=== PATIENT | male | born 1950 | race Caucasian/White ===

== ENCOUNTER 2017-01-03 14:43 | Observation (INO) | payer MEDICARE, OTHER ==
--- NOTE | ~2017-01-03 | HP ---
History And Physical [address] [place]. [address] NAME: ADRIANNE MDARID : 48 STATUS : ADM Emely PAT#: [id number] AGE: 66 ADM/REG DATE : 01/03/17 MR#: [id number] REPORT SERV DATE: 01/04/17 DICTATED BY: DATE: REPORT STATUS : Draft TRANSCRIBED BY: MODL DATE: 01/04/17 DATE OF ADMISSION: 01/03/2017 FLAT EXAMINER: He reports he sees a suit attendant at the [facility], he is unsure of his name. CHIEF COMPLAINT: Chest pain. HISTORY OF PRESENT ILLNESS: This is a 66-year-old white male, who presented to the emergency room with chest pain that started yesterday around 11 a.m. 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 He reports the chest pain was a 7 to 8/10 that did not radiate anywhere. He reports that the chest pain was relieved after he received a nitroglycerin x1 in the ambulance, and he denies any recurrence of the symptoms listed above ever since he received the nitro in the ambulance. Currently, he denies any chest pain or pressure, shortness of breath, nausea, vomiting, or abdominal pain. The patient denies any personal history of myocardial infarction, stroke, DVT, or pulmonary embolus. The patient denies any recent fever or chills. No palpitations. No syncopal episodes. Denies PND or orthopnea. PAST MEDICAL HISTORY: Hypertension, hyperlipidemia, GERD, and PTSD. PAST SURGICAL HISTORY: Lower lumbar fusion. He reports he has had six back surgeries. Right knee surgery. SOCIAL HISTORY: He is retired from the [employer]. He is with two children. He smokes about two cigars daily, and has been doing that for the last two to three years ago. He denies any alcohol use, and he denies any illicit drug use. FAMILY HISTORY: He reports that his mother had an [place] in her 70s, and he reports that his father had atherosclerosis. REVIEW OF SYSTEMS: A 14-point review of systems was performed, significant for HPI. No other contributory diagnosis identified. ALLERGIES: NO KNOWN ALLERGIES. HOME MEDICATIONS: 1. Lipitor 10 mg p.o. at bedtime. 2. Wellbutrin 100 p.o. twice a day. 3. Lopressor 12.5 p.o. twice a day. 4. Prilosec 20 p.o. before breakfast. 5. Aspirin enteric-coated 81 mg p.o. daily. 6. Multivitamin 1 tablet p.o. daily. 7. Beta-angeline. History And Physical [address] [address] NAME: ADRIANNE MADRID : 48 STATUS : ADM Emely PAT#: [id number] AGE: 66 ADM/REG DATE : 01/03/17 MR#: [id number] REPORT SERV DATE: 01/04/17 DICTATED BY: DATE: REPORT STATUS : Draft TRANSCRIBED BY: DEJON DATE: 01/04/17 PHYSICAL EXAMINATION: VITAL SIGNS: Blood pressure 125/75, heart rate 56, temperature 97.7, respirations 18, O2 saturation 97%. BMI of 28.1. GENERAL: Cooperative, in no apparent distress. HEENT: Head normocephalic, anicteric. Normal EOM. PERRLA. No xanthelasma. Nares patent. Moist mucous membranes. NECK: Trachea midline. No thyromegaly, JVD or bruits. RESPIRATORY: Clear to auscultation bilaterally anterior and posterior. Respirations even and unlabored. No wheezes, rhonchi or crackles. CARDIOVASCULAR: Regular rate and rhythm. No murmur, rub or gallop appreciated. No chest wall tenderness to palpation. ABDOMEN: Soft, nontender, nondistended, normal bowel sounds auscultated throughout. No masses or organomegaly. EXTREMITIES: No peripheral edema. DP/PT and radial pulses palpable bilaterally. No clubbing or cyanosis. SKIN: Warm, dry and intact. Normal turgor. No pallor or cyanosis. NEURO/PSYCH: Alert, oriented x3 with no acute distress. Affect appropriate to current situation. IMAGING AND DIAGNOSTIC STUDIES: CTA of the aorta done on 01/03/2017 shows normal CTA of the aorta, no acute abnormality. Chest x-ray; no radiographic evidence of acute process noted. The lungs and pleural spaces are clear. EKG shows sinus rhythm, 64. departmental secretary shows sinus rhythm at 68, no ectopy, pauses, or any arrhythmias noted. ASSESSMENT AND PLAN: 1. Typical chest pain. Troponins x2 have been negative. The patient currently has been chest pain free. Cardiac risk factors are hypertension, hyperlipidemia, family history, and tobacco use. Due to the cardiac risk factors, we have been observing the patient in the CPOU to rule out myocardial infarction with serial enzymes and serial EKGs. We will keep the patient n.p.o. today and plan an MPI. If the stress test shows low risk or no ischemia, RN may discharge the patient home with a followup with the patient's PCP in one week and to follow up with the patient's suit attendant who he reports he does not know the name of, and he reports that he has seen a suit attendant due to an aortic aneurysm. Please refer to the CTA of the aorta done here. Therefore, we will defer any type of further testing regarding questionable history of aneurysm to the patient's PCP and the [facility] suit attendant. If anything on the stress test is suggestive of ischemia, Cardiology referral will be initiated at that time. 2. Hypertension, appears to be stable. We will continue to monitor and continue the beta- angeline after the stress test. 3. Hyperlipidemia. The patient is on a statin. 4. Post-traumatic stress disorder. The patient is on Wellbutrin. 5. Gastroesophageal reflux disease. The patient is on Prilosec. History And Physical [address] [address] NAME: ADRIANNE MADRID : 48 STATUS : ADM Emely PAT#: [id number] AGE: 66 ADM/REG DATE : 01/03/17 MR#: [id number] REPORT SERV DATE: 01/04/17 DICTATED BY: DATE: REPORT STATUS : Draft TRANSCRIBED BY: MODL DATE: 01/04/17 6. Tobacco use. Smoking cessation was given. EKS/MODL Ramon Heredia APN / [id number] CC: Tereza Palmer, MSN, [employer] JUICE ROSENBAUM
--- NOTE | ~2017-01-03 | HP ---
History And Physical [address] [place]. [address] NAME: ADRIANNE MADRID : 48 STATUS : DIS Emely PAT#: [id number] AGE: 66 ADM/REG DATE : 01/03/17 MR#: [id number] REPORT SERV DATE: 01/04/17 DICTATED BY: DATE: REPORT STATUS : Draft TRANSCRIBED BY: MODL DATE: 01/04/17 DATE OF ADMISSION: 01/03/2017 He also reports to see a sustainability manager at the [facility], whom he does not know the name of. HISTORY OF PRESENT ILLNESS: This is a 66-year-old white male, who presented to the emergency room with chest pain that started yesterday around 11 a.m. The patient reports during his chest pain event, he also developed some chest pressure, shortness of breath, nausea, profuse sweating, and arm shakiness while he was plowing his yard. He denies the pain radiating anywhere. He reports that the chest pain that was a 7/10 to 8/10 was relieved with nitro x1 in the ambulance on his way to the emergency room. He denies any reoccurrence of the chest pain or pressure or any of the other symptoms since his pain was relieved in the ambulance. Currently, he denies any shortness of breath, chest pain, nausea, vomiting, abdominal pain, or any recent illness. The patient denies also any history of myocardial infarction, stroke, DVT, or pulmonary embolus. The patient denies any recent fevers or chills. No palpitations. No syncopal episodes. Denies PND or orthopnea. PAST MEDICAL HISTORY: Hypertension, hyperlipidemia, GERD, and PTSD. PAST SURGICAL HISTORY: 1. Lower lumbar fusion, he reports he has had six back surgeries. 2. Right knee surgery. SOCIAL HISTORY: He is retired from the [employer]. He is and has two children. He smokes about two cigars daily and has been in the last two to three years. He denies any alcohol use. He denies any illicit drug use. FAMILY HISTORY: He reports that his mother had an [place] in her 70s. He reports that his father had atherosclerosis. REVIEW OF SYSTEMS: A 14-point review of systems was performed, significant for HPI. No other contributory diagnoses identified. ALLERGIES: NO KNOWN ALLERGIES. HOME MEDICATIONS: 1. Lipitor 10 p.o. at bedtime. 2. Wellbutrin 100 p.o. twice a day. 3. Lopressor 12.5 p.o. twice a day. 4. Prilosec 20 p.o. before breakfast. 5. Aspirin 81 mg p.o. daily. 6. Multivitamin one tablet p.o. daily. History And Physical [address] [address] NAME: ADRIANNE MADRID : 48 STATUS : DIS Emely PAT#: [id number] AGE: 66 ADM/REG DATE : 01/03/17 MR#: [id number] REPORT SERV DATE: 01/04/17 DICTATED BY: DATE: REPORT STATUS : Draft TRANSCRIBED BY: DEJON DATE: 01/04/17 PHYSICAL EXAMINATION: VITAL SIGNS: Blood pressure 125/75, pulse 56, temperature 97.9, respirations 18, O2 sat 97%. BMI 28.1. GENERAL: Cooperative, in no apparent distress. HEENT: Head, normocephalic and anicteric. Normal EOM. PERRLA. No xanthelasma. Nares patent. Moist mucous membranes. NECK: Trachea midline. No thyromegaly, JVD, or bruits. RESPIRATORY: Clear to auscultation bilaterally anterior and posterior. Respirations even and unlabored. No wheezes, rhonchi, or crackles. CARDIOVASCULAR: Regular rate and rhythm. No murmur, rub, or gallop appreciated. No chest wall tenderness to palpation. ABDOMEN: Soft, nontender, nondistended. Normal bowel sounds auscultated throughout. No masses or organomegaly. EXTREMITIES: No peripheral edema. DP/PT and radial pulses palpable bilaterally. No clubbing or cyanosis. SKIN: Warm, dry, and intact. Normal turgor. No pallor or cyanosis. NEURO/PSYCH: Alert, oriented x3 with no acute distress. Affect appropriate to current situation. LABORATORY DATA: Troponins x2 have been less than 0.02. Sodium 141, potassium 3.9, BUN 11, creatinine 1.06, GFR 84, glucose 102, magnesium 2.1. White blood cells 9.0, hemoglobin 13.6, hematocrit 41.1, platelets 170. INR 1.1. IMAGING AND DIAGNOSTIC STUDIES: CTA of the aorta shows normal CTA of the aorta, no acute abnormalities. Chest x-ray shows no radiographic evidence of acute process, lungs are clear. EKG shows sinus rhythm. potline monitor shows sinus rhythm at 68, no ectopy or arrhythmias or any pauses noted. ASSESSMENT AND PLAN: 1. Atypical chest pain. DICTATION ENDS HERE EKS/MODL Ramon Heredia APN / [id number] History And Physical [address] [address] NAME: ADRIANNE MADRID : 48 STATUS : DIS Emely PAT#: [id number] AGE: 66 ADM/REG DATE : 01/03/17 MR#: [id number] REPORT SERV DATE: 01/04/17 DICTATED BY: DATE: REPORT STATUS : Draft TRANSCRIBED BY: MODPat DATE: 01/04/17 CC: Tereza Palmer, MSN, [employer] Fritz Lock
[~2017-01-03 14:43] MED LIST: ASA5GR PO; BACDS PO; CIALIS5 MG PO; CINNAMON PO; ENDOCET1 TAB PO; FISH-EPA1000 MG PO; FLAXSEED OIL1000 MG PO; FLEX PO; IBU800 PO; LIPITOR20 PO; LOP25 PO; METHOC750B PO; MSIMMR15 PO; MULTIPLE VIT PO; NEUR100 PO; NORCO1 TA1 PO; OXYIR5 MG PO; PCET PO; PRILO PO; PRIN10 PO; RIFADIN150 MG PO; ROXICODONE15 MG PO; STERAPDS12; V2 PO; V5 PO; VITAMIN D1000 UNI1 PO; VITC500 PO; WELL100 PO; ZINC GLUCON50 MG PO; ZOCOR40 PO; [UNRECOGNIZED DRUG - OTHER] PO
[2017-01-03 15:57] LABS: BASOPHILS 0.1 %; BASOPHILS ABSOLUTE 0.01 10/3/uL (0.0-0.16); EOSINOPHILS 0.7 %; EOSINOPHILS ABSOLUTE 0.06 10/3/uL (0.0-0.53); ER CBC TAT 0 Hrs 09 Mins; HEMATOCRIT 41.1 % (40.0-51.0); HEMOGLOBIN 13.6 g/dL (13.6-17.8); IMMATURE GRANULOCYTES 0.2 %; IMMATURE GRANULOCYTES ABSOLUTE 0.02 10/3/uL (0.0-0.11); LYMPHOCYTES 10.1 %; LYMPHOCYTES ABSOLUTE 0.91 10/3/uL (0.67-4.30); MEAN CORPUS HGB CONC 33.1 g/dL (32.0-36.0); MEAN CORPUSCULAR HEMOGLOB 26.8 pg (26.0-34.0); MEAN CORPUSCULAR VOLUME 80.9 fL (80-100); MEAN PLATELET VOLUME 8.8 fL (9.2-13.0); MONOCYTES 8.2 %; MONOCYTES ABSOLUTE 0.74 10/3/uL (0.21-1.20); NEUTROPHILS 80.7 %; PLATELET COUNT 170 10/3/uL (150-400); RBC DISTRIBUTION WIDTH 15.5 % (12.0-16.0); RED CELL COUNT 5.08 10/6/uL (4.7-6.1)
[2017-01-03 15:58] LABS: MANUAL DIFF NO %
[2017-01-03 16:06] LABS: INTERNATIONAL NORMAL RATI 1.1 UNITS (-); PARTIAL THROMBO TIME 26.8 SEC (22.5-37.2); PROTIME (NOT ORD) 14.2 SEC (12.0-14.5)
[2017-01-03 16:13] LABS: ALBUMIN 4.1 G/DL (3.5-5.0); DIRECT BILIRUBIN 0.2 MG/DL (0.0-0.4); INDIRECT BILIRUBIN(NOT ORDER) 1.3 MG/DL (0.1-0.9); TOTAL BILIRUBIN 1.5 MG/DL (0-1.2); TOTAL PROTEIN 7.2 G/DL (6.0-8.5)
[2017-01-03 16:15] LABS: BUN (BLOOD UREA NITROGEN) 11 MG/DL (6-23); CALCIUM, SERUM 9.2 MG/DL (8.5-10.4); CHEST PAIN PROFILE TAT 0 Hrs 27 Mins; CHLORIDE, SERUM 105 MMOL/L (96-112); CO2 (CARBON DIOXIDE) 27 MMOL/L (24-34); CREATININE 1.06 MG/DL (0.70-1.30); GFR AFRICAN AMERICAN 84 ML/MIN (>=60); GFR NON AFRICAN AMERICAN 72 ML/MIN (>=60); GLUCOSE, SERUM 102 MG/DL (60-99); POTASSIUM, SERUM 3.5 MMOL/L (3.5-5.3); SODIUM, SERUM 141 MMOL/L (135-148); TROPONIN I <0.02 NG/ML (<0.05)
[2017-01-03] MEDS ORDERED: LOP25 PO (20:39)
[2017-01-03] MEDS ORDERED: WELL100 PO (20:39)
[2017-01-03] MEDS ORDERED: LIPITOR10 PO (20:39)
[2017-01-03] MEDS ORDERED: PRILO PO (20:40)
[2017-01-03] MEDS ORDERED: HALF81 PO (20:40)
[2017-01-03] MEDS ORDERED: MULTIVITAMI1 PO (20:40)
== END 2017-01-04 14:05 | disposition home or self-care (01) ==
LOC: ER 14:43 → CDU1 20:25 → CDU2 20:45
PROVIDERS: Emergency Medicine
DX: R07.9 Chest pain, unspecified (principal); I10 Essential (primary) hypertension; E78.5 Hyperlipidemia, unspecified; K21.9 Gastro-esophageal reflux disease without esophagitis; F43.10 Post-traumatic stress disorder, unspecified; G47.30 Sleep apnea, unspecified; M19.90 Unspecified osteoarthritis, unspecified site; Z98.890 Other specified postprocedural states; F17.210 Nicotine dependence, cigarettes, uncomplicated; Z79.82 Long term (current) use of aspirin; Z79.899 Other long term (current) drug therapy
CPT/HCPCS: 71010; 71275; 74175; 78452; 80048; 80076; 83690; 83735; 84132; 84484; 85025; 85610; 85730; 93005; 93017; 99285; A9270-GY; A9502; G0378